=== PATIENT | male | born 1985 | race Caucasian/White ===

== ENCOUNTER 2025-04-29 12:55 | Emergency (ER) | payer MEDICAID ==
[~2025-04-29] VITALS: Ht 165.1 cm; Wt 86.2 kg
[2025-04-29 12:58] VITALS: BP 137/89; PULSE 82; RESP 15; O2SAT 99
--- NOTE | 2025-04-29 15:24 | Physician Documentation ---
History of Present Illness ~ Chief Complaint: Ear Pain Stated Complaint: EAR PAIN Time Seen by MD: 14:21 HPI Patient is seen today with complaints of pain in his right ear. Patient states he was back in [place] a couple of weeks ago when he felt something climb in his ear one night but did not think much more vomit. Since then his hearing has been affected in his pain in his right ear. He is not sure what is happening. He denies any swimming recently and denies any recent cold or illness. He has no other concerns or complaints this time. He denies any fevers or chills. Medication Reconciliation Allergies: Coded Allergies: No Known Allergies (Unverified , 04/29/25) Review of Systems Constitutional: Denies: chills, fever, weakness Eyes: Denies: pain, blurred vision ENT: Denies: ear pain, nose pain, throat pain, mouth pain Respiratory: Denies: cough, shortness of breath Cardiovascular: Denies: chest pain, palpitations Gastrointestinal: Denies: abdominal pain, nausea, vomiting Genitourinary: Denies: burning, dysuria Male Genitalia: Denies: penile discharge, testicular pain Neurological: Denies: headache, dizziness Musculoskeletal: Denies: pain, swelling Integumentary: Denies: rash, lesions Allergic/Immunologic: Denies: hives, itching Hematologic/Lymphatic: Denies: no symptoms reported Psychiatric: Denies: depression, anxiety Physical Exam Vital Signs: Temperature: 97.4, Source: Temporal, Heart Rate: 82, Respiratory Rate: 15, BP: 137/89, Pulse Oximetry: 99, Weight: 86.200 Physical Exam General: Awake and Alert, no acute distress. HEENT: Patient on exam has tympanic membrane on the left side unremarkable and within normal limits. On the right side that the tympanic membrane is not visualized as there appears to be an engorged tick deep inside his right ear canal. The canal is unremarkable and no sign of swelling of the canal or erythema. Conjunctiva pink, Sclera clear, Mucus Membranes moist. Neck: Supple without masses and tenderness. Resp: Unlabored. Lungs clear to auscultation bilaterally. Heart: Regular Rate and rhythm, normal S1 and S2 without murmur, rub or gallop. Extremities: No cyanosis,clubbing or edema. Skin: Warm and Dry. Progress Results/Orders Results/Orders Vital Signs 6/10/25 12:58 Temp 97.4 Pulse 82 Resp 15 B/P (MAP) 137/89 Pulse Ox 99 Medical Decision Making Findings Patient is seen today with complaints of pain in his right ear. Patient states he was back in [place] a couple of weeks ago when he felt something climb in his ear one night but did not think much more vomit. Since then his hearing has been affected in his pain in his right ear. He is not sure what is happening. He denies any swimming recently and denies any recent cold or illness. He has no other concerns or complaints this time. He denies any fevers or chills. I was able to safely remove an engorged tick from the patient's right ear canal using a small set of alligator clamps. I did use three or 4 cc of 1% lidocaine without epinephrine to soak the right ear canal for about 20 minutes prior to removing the tick. Patient tolerated bolus very well. Patient states his ear is feeling much better now. 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 A prescription of doxycycline 100 mg one tab twice a day for seven days sent to patient's pharmacy while enlarged and [place]. Patient will return to ED with any worsening, concerning or changing symptoms. Departure Disposition: 01 HOME / SELF CARE / HOMELESS Impression: Primary Impression: Embedded tick of right ear Qualified Codes: S00.451A - Superficial foreign body of right ear, initial encounter; Z18.39 - Other retained organic fragments Additional Impression: Right ear pain Condition: Improved Discharge Instructions: Ear Foreign Body, Tick Bite Information, Adult, [id number] Additional Instructions: I was able to safely remove an engorged tick from the patient's right ear canal using a small set of alligator clamps. I did use three or 4 cc of 1% lidocaine without epinephrine to soak the right ear canal for about 20 minutes prior to removing the tick. Patient tolerated bolus very well. Patient states his ear is feeling much better now. 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 A prescription of doxycycline 100 mg one tab twice a day for seven days sent to patient's pharmacy while enlarged and [place]. Patient will return to ED with any worsening, concerning or changing symptoms. Referrals: NO PRIMARY CARE PROVIDER (PCP) Prescriptions Doxycycline Hyclate (Doxycycline Hyclate) 100 Mg Capsule 1 CAP PO Q12H for 7 Days, #14 CAP Prov: BROCK HUNTER PAC 04/29/25 Signature Scribe Signature: No scribe Attestation: No scribBROCK Langston PAC Apr 29, 2025 15:24
[2025-04-29] MEDS ORDERED: DOXY-1 PO (15:40)
[2025-04-29] MEDS: DOXYCYCLINE 100MG CAPSULE PO STA (15:54)
[2025-04-29 16:01] VITALS: TEMP 97.4
== END 2025-04-29 16:05 | disposition home or self-care (01) ==
LOC: ER 12:56
DX: S00.451A Superficial foreign body of right ear, initial encounter (principal); X58.XXXA Exposure to other specified factors, initial encounter; Y93.89 Activity, other specified; Y92.89 Other specified places as the place of occurrence of the external cause; Y99.8 Other external cause status
CPT/HCPCS: 69200; 99284